=== PATIENT | male | born 1980 | race Caucasian/White ===

== ENCOUNTER 2017-02-10 13:12 | Emergency (ER) | payer OTHER, MEDICAID ==
[~2017-02-10 13:12] MED LIST: METR-1 PO; ZOFR4TAB3 SL
[2017-02-10 13:45] VITALS: BP 138/77; PULSE 97; RESP 19; TEMP 97.2; O2SAT 93
[2017-02-10] MEDS ORDERED: FAMOTIDINE 20 MG/2 ML VIAL IV PUSH ONE (15:15)
[2017-02-10] MEDS ORDERED: diphenhydrAMINE HCL 50 MG/ML VIAL IVP ONE (15:15)
[2017-02-10] MEDS ORDERED: methylPREDNISolone SOD SUCC 125 MG/2 ML VIAL IVP ONE (15:15)
[2017-02-10 15:37] VITALS: O2SAT 99
--- NOTE | 2017-02-10 15:46 | PD ---
HPI Chief Complaint: Allergic/Adverse Reaction Time Seen by Provider: 15:10 Travel History International Travel<30 days: No Contact w/Intl Traveler<30days: No Traveled to known affect area: No History of Present Illness HPI 36-year-old male brought in by EMS after he experienced sudden onset of bilateral hand and tongue swelling while cutting grass. Event occurred at approximately 12:30. Patient reports he has had one similar episode prior to penicillin when he was a child. He reports at that time he had oral and facial swelling. He did not require intubation. He is unsure if he was bitten or stung by a bee while cutting the grass. Patient denies experiencing shortness of breath, chest pain, nausea vomiting, diarrhea. He was administered 0.3 mg IM epinephrine and one albuterol treatment by fire and rescue prior to arrival. The symptoms quickly improved and by the time the patient arrived to the emergency department the swelling had resolved. Patient currently has no complaint. PFSH Past Medical History Asthma: Yes Diminished Hearing: No Respiratory: Yes (ASTHMA) Social History Alcohol Use: No Tobacco Use: No Substance Use: No Allergies-Medications (Allergen,Severity, Reaction): Coded Allergies: Penicillin (Verified Allergy, Severe, HIVES, 04/28/16) Reported Meds & Prescriptions Reported Meds & Active Scripts Active Zofran ODT (Ondansetron HCl) 4 Mg Tab 4 Mg SL Q6H PRN FOR NAUSEA/VOMITING Flagyl (Metronidazole) 500 Mg Tab 4 Tab PO TODAY TAKE 4 TABS (2000 MG) PO TODAY Review of Systems Except as stated in HPI: all other systems reviewed are Neg Physical Exam Narrative GENERAL: Alert, well-appearing male. No acute distress. Resting comfortably on stretcher with beside him. SKIN: Focused skin assessment warm/dry. No rash or hives. HEAD: Atraumatic. Normocephalic. EYES: Pupils equal and round. No scleral icterus. No injection or drainage. ENT: No nasal bleeding or discharge. Mucous membranes pink and moist. No oral edema. The airway is patent. NECK: Trachea midline. No JVD. CARDIOVASCULAR: Regular rate and rhythm. No murmur appreciated. RESPIRATORY: No accessory muscle use. Clear to auscultation. Breath sounds equal bilaterally. No wheezing. GASTROINTESTINAL: Abdomen soft, non-tender, nondistended. Hepatic and splenic margins not palpable. MUSCULOSKELETAL: No obvious deformities. No clubbing. No cyanosis. No edema. NEUROLOGICAL: Awake and alert. No obvious cranial nerve deficits. Motor grossly within normal limits. Normal speech. PSYCHIATRIC: Appropriate mood and affect; insight and judgment normal. Data Data Last Documented VS Vital Signs Date Time Temp Pulse Resp B/P Pulse Ox O2 Delivery O2 Flow Rate FiO2 02/10/17 15:37 18 99 Room Air 02/10/17 13:45 97.2 97 138/77 Orders Oximetry (02/10/17 15:12) Diphenhydramine Inj (Benadryl Inj) (02/10/17 15:15) Methylprednisolone So Succ Inj (Solumedr (02/10/17 15:15) Famotidine Inj (Pepcid Inj) (02/10/17 15:15) MDM Medical Decision Making Medical Screen Exam Complete: Yes Emergency Medical Condition: Yes Differential Diagnosis Allergic reaction, anaphylaxis, angioedema, other Narrative Course 36-year-old male brought in by EMS after sudden episode of bilateral hand and tongue swelling while cutting the grass. Patient has had one previous anaphylactic episode to penicillin when he was a child. He was administered 0.3 mg IM epinephrine and one albuterol treatment. His symptoms quickly resolved. Upon arrival to the ED the swelling have resolved. Patient currently has no complaints. IV established, patient placed on continuous cardiac and pulse oximetry monitoring. IV Solu-Medrol and Benadryl and Pepcid administered. Patient will be observed in the emergency department. Patient was observed in the emergency department for over 4 hours. During the course patient had no oral or extremity swelling. No hives. No signs or symptoms of systemic allergic reaction. Patient will be discharged home with steroids, Benadryl, Pepcid, EpiPen. Strict return precautions discussed with patient. Patient was referred to telephone exchange operator for follow-up. Patient and family verbalizes understanding and agrees to plan. Diagnosis Primary Impression: Allergic reaction Qualified Code: T78.40XA - Allergic reaction, initial encounter Referrals: [employer] Primary Care Physician Additional Instructions: Take medications as prescribed. Take [id number] Benadryl 25 mg every 6 hours. Make a follow-up appointment with an telephone exchange operator. Make a follow-up appointment with her primary care doctor. Use the EpiPen if you develop any signs or symptoms of anaphylaxis as described. Return to the emergency department or call 911 if he developed facial/tong swelling, difficulty breathing, wheezing. Scripts Epinephrine Inj (Epipen 2-Johnny Inj)0.3 Mg/0.3 Ml Pfpen0.3 Mg SQ ONCE PRN ( ALLERGIC REACTION) #1 PACK Ref 0 Prov:Ana Cristina Campos 02/10/17 Famotidine (Pepcid)20 Mg Tab20 Mg PO BID #10 TAB Ref 0 Prov:Ana Cristina Campos 02/10/17 Prednisone 20 Mg Tab40 Mg PO DAILY #10 TAB Take 40 mg (2 tablets) daily for 5 days Prov:Ana Cristina Campos 02/10/17 Disposition: 01 DISCHARGE HOME Condition: Stable Ana Cristina Campos Feb 10, 2017 15:46
[2017-02-10 17:36] VITALS: BP 113/61; PULSE 68; RESP 16; O2SAT 98
[2017-02-10] MEDS ORDERED: EPIP0.3I SQ (17:36)
[2017-02-10] MEDS ORDERED: PRED20 PO (17:36)
[2017-02-10] MEDS ORDERED: FAMO1TAB37 PO (17:36)
== END 2017-02-10 18:09 | disposition home or self-care (01) ==
LOC: NEPK 13:12
DX: T78.40XA Allergy, unspecified, initial encounter (principal); M79.89 Other specified soft tissue disorders; R22.0 Localized swelling, mass and lump, head; J45.909 Unspecified asthma, uncomplicated; Z79.899 Other long term (current) drug therapy; Z88.0 Allergy status to penicillin
CPT/HCPCS: 96374; 96375; 99284; J1200; J2930